=== PATIENT | male | born 1985 | race Caucasian/White ===

== ENCOUNTER → 2017-03-28 | Outpatient (CLI) | payer MEDICAID, OTHER ==
[2017-03-28 15:45] LABS: ALBUMIN 4.2 GM/DL (3.2-5.2); ALBUMIN/GLOBULIN RATIO 1.17 (1.00-1.93); ALKALINE PHOSPHATASE 50 U/L (45-117); ALT/SGPT 78 U/L (12-78); AST/SGOT 37 U/L (7-37); BILIRUBIN,DIRECT 0.1 MG/DL (0.0-0.2); BILIRUBIN,TOTAL 0.4 MG/DL (0.2-1.0); BLOOD UREA NITROGEN 12 MG/DL (7-18); CHOLESTEROL LEVEL 250 MG/DL (<200); FERRITIN 51 NG/ML (26-388); GLOMERULAR FILTRATION RATE > 60.0 (>60); TOTAL PROTEIN 7.8 GM/DL (6.4-8.2); TRIGLYCERIDES LEVEL 199 MG/DL (<150)
[2017-03-31 00:06] LABS: SJOGREN'S ANTI SS-A <0.2 AI (0.0-0.9); SJOGREN'S ANTI SS-B <0.2 AI (0.0-0.9)
== END ==
LOC: M LAB 14:29
PROVIDERS: ATTEND Internal Medicine Gastroenterology
DX: R94.5 Abnormal results of liver function studies (principal)

== ENCOUNTER 2017-11-21 17:20 | Emergency (ER) | payer MEDICAID, OTHER ==
[2017-11-21] MEDS: METHOCARBAMOL 500 MG TAB PO ×2 (19:12)
[2017-11-21] MEDS: KETOROLAC 60 MG/2 ML VIAL (J1885) IM ×2 (19:12)
== END 2017-11-21 19:44 | disposition home or self-care (01) ==
LOC: M ED 17:20
DX: S46.811A Strain of other muscles, fascia and tendons at shoulder and upper arm level, right arm, initial encounter (principal); V43.52XA Car driver injured in collision with other type car in traffic accident, initial encounter; Y92.9 Unspecified place or not applicable; Y93.9 Activity, unspecified; Y99.9 Unspecified external cause status; F41.9 Anxiety disorder, unspecified; F32.9 Major depressive disorder, single episode, unspecified; F31.9 Bipolar disorder, unspecified; F43.10 Post-traumatic stress disorder, unspecified; Z79.899 Other long term (current) drug therapy
CPT/HCPCS: J1885

== ENCOUNTER → 2019-04-12 | Outpatient (REF) ==
[~2019-04-12] MED LIST: CLON1TAB8 PO; CLON2TAB14 PO; LITH300C PO; LITH300T2 PO; NAPR-855; NAPR-885 PO; ROBA500T PO; SERO1TAB PO; TRAZ-186 PO; TRAZ-189 PO; VITMTA PO
== END ==
LOC: M LAB REF 11:39
PROVIDERS: ATTEND Emergency Medicine
DX: Z51.81 Encounter for therapeutic drug level monitoring (principal)

== ENCOUNTER 2019-04-13 16:56 | Inpatient (IN) | payer MEDICAID, OTHER ==
[~2019-04-13 16:56] MED LIST changes: -CLON1TAB8 PO; -LITH300T2 PO; -TRAZ-189 PO; -VITMTA PO
[2019-04-13] MEDS ORDERED: TRAZ-189 PO (19:50)
[2019-04-13] MEDS ORDERED: LITH300T2 PO (19:50)
[2019-04-13] MEDS ORDERED: SERO1TAB PO (19:50)
[2019-04-13] MEDS ORDERED: CLON1TAB8 PO (19:50)
[2019-04-13] MEDS ORDERED: VITMTA PO (19:54)
[2019-04-14] MEDS ORDERED: LITHIUM CARBONATE 300 MG CAP PO ONE (10:15)
[2019-04-14] MEDS ORDERED: QUEtiapine FUMARATE 100 MG TAB PO ONE (10:15)
[2019-04-14] MEDS ORDERED: MULTIVITAMINS/MINERALS THERAP 1 TAB PO ONE (10:15)
[2019-04-14] MEDS ORDERED: clonazePAM 1 MG TAB PO ONE (10:30)
[2019-04-14] MEDS ORDERED: MOM 30ML SUSPENSION UDC PO PRN (15:30)
[2019-04-14] MEDS ORDERED: MAALOX 30 ML SUSP *UDC PO PRN (15:30)
[2019-04-14] MEDS ORDERED: IBUPROFEN 400 MG TAB PO PRN (15:30)
[2019-04-14] MEDS ORDERED: OLANZapine 5 MG TAB PO PRN (15:30)
[2019-04-14 16:40] VITALS: BP 160/60
[2019-04-14] MEDS: traZODone 50 MG TAB PO PRN (20:26)
[2019-04-14] MEDS: QUEtiapine FUMARATE 100 MG TAB PO SCH (20:26)
[2019-04-14] MEDS: LITHIUM CARBONATE 600 MG CAP PO SCH (20:26)
[2019-04-15 06:26] VITALS: BP 136/72
[2019-04-15] MEDS: LITHIUM CARBONATE 300 MG CAP PO SCH (08:00)
[2019-04-15] MEDS: QUEtiapine FUMARATE 100 MG TAB PO SCH ×3 (08:00→21:16)
--- NOTE | 2019-04-15 10:20 | HPEPDOC ---
General Date of Admission Apr 14, 2019 at 15:29 Date of Service: Apr 15, 2019 Chief Complaint The patient is a 33-year-old male admitted with a reason for visit of Bipolar Disorder And Ptsd. Source: Patient Exam Limitations: No limitations Timing/Duration: Other (not applicable) Severity: Other (not applicable) Associated Symptoms: Other (not applicable) Home Medications Scheduled [place] Carbonate ([place] Carbonate) 300 Mg Cap, 300 MG PO QAM, (Reported) [place] Carbonate ([place] Carbonate) 300 Mg Tablet, 600 MG PO QHS, (Reported) Multivitamins (Thera M Plus Tablet) 1 Each Tablet, 1 TAB PO BID, (Reported) Quetiapine Fumarate (Seroquel) 100 Mg Tab, 100 MG PO BID, (Reported) MORNING AND LUNCH Quetiapine Fumarate (Seroquel) 100 Mg Tablet, 300 MG PO QHS, (Reported) Trazodone HCl (Trazodone HCl) 100 Mg Tablet, 100 MG PO QHS, (Reported) Scheduled PRN Clonazepam (Clonazepam) 1 Mg Tablet, 1 MG PO TID PRN for ANXIETY, (Reported) Allergies Coded Allergies: No Known Allergies (Unverified , 11/21/17) Past Medical History Medical History PTSD and bipolar disorder Surgical History None Family History Significant Family History: No pertinent family hx Social History * Smoker: Denies Alcohol: Denies Drugs: denies A-FIB/CHADSVASC A-FIB History Current/History of A-Fib/PAF?: No Review of Systems Constitutional: Denies: Chills, Fever, Malaise, Night Sweats, Weakness, Fatigue, Weight Loss, Lethargy, Other Eyes: Denies: Pain, Vision change, Conjunctivae inflammation, Eyelid inflammation, Redness, Other ENT: Denies: Head Aches, Ear Pain, Dysphagia, Sinus Congestion, Post Nasal Drip, Sore Throat, Epistaxis, Other Symptoms Skin: Denies: Rash, Lesions, Jaundice, Bruising, Itching, Dry, Breakdown, Nail Changes, Other Pulmonary: Denies: Dyspnea, Cough, Pleuritic Chest Pain, Other Symptoms Cardiovascular: Denies: Chest Pain, Palpitations, Orthopnea, Paroxysmal Noc. Dyspnea, Edema, Lt Headedness, Other Symptoms Gastrointestinal: Denies: Nausea, Vomiting, Abdominal Pain, Diarrhea, Constipation, Melena, Hematochezia, Other Symptoms Genitourinary: Denies: Dysuria, Frequency, Incontinence, Hematuria, Retention, Other Symptoms Hematologic: Denies: Bruising, Bleeding Excessively, Petecchia, Purpura, Enlarged Lymph Nodes, Other Hematologic Endocrine: Denies: Polydipsia, Polyphagia, Polyuria, Heat Intolerance, Cold Intolerance, Other Endocrine Sx Musculoskeletal: Denies: Neck Pain, Back Pain, Shoulder Pain, Arm Pain, Hand Pain, Leg Pain, Foot Pain, Joint Pain, Muscle Pain, Spasms, Other Symptoms Neurological: Denies: Weakness, Numbness, Incoordination, Change in speech, Confusion, Seizures, Other Symptoms Psych: Denies: Mood Normal, Anxiety, Depression, Memory Issues, Thoughts of Self Harm, Anger, Thoughts of Harming Other, Other Psych Physical Examination General Exam: Positive: Alert, Cooperative Eye Exam: Positive: PERRLA, Conjunctiva & lids normal ENT Exam: Positive: Atraumatic, Mucous membr. moist/pink Neck Exam: Positive: Supple Chest Exam: Positive: Clear to auscultation, Normal air movement Heart Exam: Positive: Rate Normal, Normal S1, Normal S2 Abdomen Exam: Positive: Normal bowel sounds, Soft Extremity Exam: Positive: Normal pulses Skin Exam: Positive: Nl turgor and temperature Neuro Exam: Positive: Strength at 5/5 X4 ext, Cranial Nerves 3-12 NL Psych Exam: Positive: Mood NL, Oriented x 3 Vital Signs Vital Signs Date Time Temp Pulse Resp B/P (MAP) Pulse Ox O2 Delivery O2 Flow Rate FiO2 04/15/19 06:26 98.1 62 18 136/72 (93) 04/14/19 14:36 100 Room Air Laboratory Data Labs 24H Laboratory Tests 2 04/14/19 10:43: [place] Level 0.23L Problems (1) Suicide attempt by drug overdose Status: Acute Problem Text: Patient admitted to inpatient psych unit with suicidal attempt Patient is not suicidal at the present time. Denies any suicidal ideations Group and individual counseling as per psych Medications as per psychiatry No active medical issues at the present time. Please call as needed (2) PTSD (post-traumatic stress disorder) Status: Chronic Problem Text: Meds as per psych (3) Bipolar 1 disorder Status: Chronic Problem Text: Meds as per psych Plan / VTE VTE Prophylaxis Ordered?: Yes KAYLYNN GELLER MD Apr 15, 2019 10:20
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
[2019-04-15 16:35] VITALS: BP 120/80
[2019-04-15] MEDS: LITHIUM CARBONATE 600 MG CAP PO SCH (21:16)
[2019-04-15] MEDS: traZODone 50 MG TAB PO PRN (21:16)
[2019-04-16 06:19] VITALS: BP 125/64
[2019-04-16] MEDS: QUEtiapine FUMARATE 100 MG TAB PO SCH ×3 (08:53→20:49)
[2019-04-16] MEDS: LITHIUM CARBONATE 300 MG CAP PO SCH (08:53)
[2019-04-16] MEDS ORDERED: LITHIUM CARBONATE 300 MG CAP PO ONE (15:00)
[2019-04-16 16:02] VITALS: BP 139/63
--- NOTE | 2019-04-16 16:26 | MHIPN ---
DATE: 04/16/2019 VITAL SIGNS: Temperature 98.1, pulse 56, respirations 16, blood pressure 125/65. CURRENT MEDICATIONS: - lithium 300 mg in the morning and 600 mg at night - Seroquel 100 mg twice a day and 300 mg at night - trazodone 50 mg at night as needed HISTORY OF PRESENT ILLNESS: The patient describes further his manic behavior prior to admission. He would spend long hours each day at the gym and when he got home he would write notes and lyrics for songs for hours. This annoys his as he is avoiding her, which has led to marital conflict with her threatening a divorce. The patient is giving mixed signals regarding his lithium dosage. Staff have not been able to obtain records from the [facility] yet confirming the correct dosage. He now states that he takes two lithium tablets during the day, as well as the three at bedtime. The patient's lithium level on 04/14/2019 was low at 0.23. The patient is not a good historian regarding his previous medication trials. The patient has been attending the therapeutic milieu. His has been visiting and is quite supportive. He is optimistic for a reconciliation. He admits that he does have anger issues and is looking forward to anger management therapy program at the [facility]. MENTAL STATUS EXAMINATION: The patient is alert, oriented and reasonably cooperative. Speech is quite rapid. He has racing thoughts. He appears hypomanic with some weepiness and depressive symptoms as well. He denies being homicidal or suicidal. No signs of psychosis. Grooming and hygiene appear good. Cognitive functions appear intact. DIAGNOSES: 1. Bipolar disorder, mixed. 2. Posttraumatic stress disorder (PTSD) by history. ASSESSMENT: Staff are working to obtain information from the [facility] regarding his current lithium dosage. The patient may be undermedicated for his manic state. PLAN: As above, obtain lithium level tomorrow, likely increase in daily lithium dosage. Social work staff to consult with and to coordinate care with local outpatient [facility].
[2019-04-16] MEDS: LITHIUM CARBONATE 600 MG CAP PO SCH (20:49)
[2019-04-17 06:35] VITALS: BP 134/56
[2019-04-17] MEDS: QUEtiapine FUMARATE 100 MG TAB PO SCH (08:11)
[2019-04-17] MEDS ORDERED: LITH300T2 PO (08:52)
--- NOTE | 2019-04-17 08:57 | MHDSPDOC ---
[facility] Discharge Summary Discharge Summary DATE OF ADMISSION: Apr 14, 2019 at 15:29 DATE OF DISCHARGE: 04/17/19 Discharge Deni Mckeon MRN: N/[id number] Date of : N/A Date of Service: 04/17/2019 Diagnoses PTSD, chronic. Bipolar disorder, type 1, most recent episode manic, in complete remission. History of Present Illness The patient a 33-year-old presents reportedly after overdosing on medications with some unspecified manic symptoms preceding his impulsive b ehavior. He is admitted after being seen at [facility] after a overdose of lithium, Seroquel and trazodone. He was admitted out of a concerned for his safety and restarted on home lithium. Consultants Involved Hospitalist/PCP screening Treatment and Progress On The Unit The patient was admitted to the unit and restarted on home lithium which was 300 mg and subsequently increased to a total of 600 mg BID as well as Seroquel and trazodone. The patient made good progress and resolved quite quickly demonstrating no further manic behavior after several days of observation. He was amenable on the unit. His lithium level was mildly low on the when it was taken, however, the patient requested discharge. At the time of discharge he denied any suicidal or homicidal ideation, demonstrate no manic behavior, was amenable, talkative but not pressured, had a normal mental status exam, cooperate with discharge, was focused on engaging in marriage and family therapy and tolerated his medications well. In my clinical opinion on the day of discharge he did not meet criteria for involuntary extension and declined further voluntary admission and was discharged in good david. Discharge Assessment 33-year-old man with a reported history of bipolar disorder, presents in a state that is fairly well treated with a small increase in lithium. There is likely some concern of poor compliance with medications or metabolism changes due to his heavy workout regimen and potential use of supplements. The patient makes good progress on the unit and after observation and medication increase, his manic and impulsive behaviors vanished with little effort and he is discharged in good david with a normal mental status exam. His lithium level is mildly low but will likely take time to equilibrate. Discussed with patient the risks and benefits of low lithium and new literature suggesting that neuroleptics and a mildly low lithium level can still be helpful and may have less risk for renal problems. He will [facility] up with [facility] shortly. Mental Status Examination General: Well dressed with good hygiene Speech: Spontaneous and fluid Thought processes: Linear and logical MSK: Smooth and coordinated gait, no signs of tremors or involuntary orofacial movements Thought content: Future orientated Abstract reasoning, and computation: Intact Description of associations: Intact Description of abnormal or psychotic thoughts: Denies any suicidal or homicidal ideation. Denies any auditory or visual hallucinations. Does not appear to be responding to internal stimuli. Does not appear to be endorsing any bizarre or paranoid ideation. Judgment: fair Insight: fair Orientation: Alert and orientated 3 Cognition: Grossly normal Recent and remote memory: Intact Attention span and concentration: Intact Fund of knowledge: Adequate Mood: "okay" Affect: Euthymic with a full range Follow Up The social work team worked during the predischarge meeting in order to evaluate for further issues of lethality address them fully before discharge. They worked on safety planning with the patient's family members in order to ensure that the patient will have a safe and effective discharge. Time Spent The amount of time spent in the coordination of care for this patient was approximately 90 minutes. Saturday Vital Signs/I&Os Vital Signs Date Time Temp Pulse Resp B/P (MAP) Pulse Ox O2 Delivery O2 Flow Rate FiO2 04/17/19 06:35 98.1 59 12 134/56 (82) Room Air 04/14/19 14:36 100 Laboratory Data Labs 24H Laboratory Tests 2 04/17/19 07:06: [place] Level 0.56L Medications Scheduled [place] Carbonate ([place] Carbonate) 300 Mg Tablet, 600 MG PO QHS for mood for 7 Days, #14 Multivitamins (Thera M Plus Tablet) 1 Each Tablet, 1 TAB PO BID, (Reported) Quetiapine Fumarate (Seroquel) 100 Mg Tab, 100 MG PO BID, (Reported) MORNING AND LUNCH Quetiapine Fumarate (Seroquel) 100 Mg Tablet, 300 MG PO QHS, (Reported) Trazodone HCl (Trazodone HCl) 100 Mg Tablet, 100 MG PO QHS, (Reported) Allergies Coded Allergies: No Known Allergies (Unverified , 11/21/17) MYRIAM HERNANDEZ DO Apr 17, 2019 08:57
[2019-04-17] MEDS ORDERED: LITHIUM CARBONATE 300 MG CAP PO SCH (09:00)
== END 2019-04-17 11:30 | disposition home or self-care (01) | DRG 753 ==
LOC: M ED 16:56 → M ED INP 04-14 15:29 → M PSY 04-14 16:25
PROVIDERS: ADMIT Psychiatry & Neurology Psychiatry; ATTEND Psychiatry & Neurology Addiction Medicine
DX: F31.10 Bipolar disorder, current episode manic without psychotic features, unspecified (principal); F43.10 Post-traumatic stress disorder, unspecified; Z79.899 Other long term (current) drug therapy

== ENCOUNTER → 2019-04-13 | Outpatient (REF) | LOC: M LAB REF 11:42 | PROVIDERS: ATTEND Emergency Medicine | DX: Z51.81 Encounter for therapeutic drug level monitoring (principal) ==

== ENCOUNTER → 2020-09-01 | Outpatient (REF) | payer MEDICARE, MEDICAID ==
[~2020-09-01] MED LIST changes: +CLON1TAB8 PO; +LITH300T2 PO; +TRAZ-189 PO; +VITMTA PO
== END ==
LOC: M LAB REF 11:28
PROVIDERS: ATTEND Surgery
DX: D17.1 Benign lipomatous neoplasm of skin and subcutaneous tissue of trunk (principal)